=== PATIENT | male | born 1950 | race Caucasian/White ===

== ENCOUNTER → 2025-02-13 14:49 | Outpatient (REF) | payer MEDICARE, SELFPAY | LOC: RAD 14:49 | PROVIDERS: ATTENDING PHYSICIAN Nurse Practitioner | DX: H93.8X1 Other specified disorders of right ear (principal) | CPT/HCPCS: 70360 ==

== ENCOUNTER → 2025-03-11 08:52 | Outpatient (REF) | payer MEDICARE, SELFPAY | LOC: RCS 08:52 | PROVIDERS: ATTENDING PHYSICIAN Nurse Practitioner | DX: I71.20 Thoracic aortic aneurysm, without rupture, unspecified (principal); I71.21 Aneurysm of the ascending aorta, without rupture | CPT/HCPCS: 93306 ==

== ENCOUNTER → 2025-05-10 10:34 | Outpatient (REF) | payer MEDICARE, SELFPAY | LOC: RAD 10:34 | PROVIDERS: ATTENDING PHYSICIAN Internal Medicine Interventional Cardiology; FAMILY PHYSICIAN Nurse Practitioner | DX: I10 Essential (primary) hypertension (principal); I71.23 Aneurysm of the descending thoracic aorta, without rupture; E78.2 Mixed hyperlipidemia | CPT/HCPCS: 71275; Q9967 ==